=== PATIENT | female | born 2000 | race Caucasian/White ===

== ENCOUNTER 2023-03-07 13:32 | Observation (INO) | payer SELFPAY ==
[2023-03-07 13:50] VITALS: PULSE 100; O2SAT 99
[2023-03-07 13:55] VITALS: PULSE 88; O2SAT 98
[2023-03-07 14:01] VITALS: BP 119/78; PULSE 90
[2023-03-07 14:08] VITALS: BMI 34.3
--- NOTE | 2023-03-07 14:08 | OBADM ---
This patient, Toyin Cramer, admitted to the OB room OB Post 115 for observation. Patient/family oriented to hospital policies and general routines including ID bracelet, bed and alarms, visiting hours, pain management, procedures, bathroom and other care routines, personal items, smoking policy, room service/diet, and visiting hours. Patient/Family are encouraged to report perceived risks to care and to ask questions if they do not understand what they are told or what they should do.
[2023-03-07 14:17] LABS: Appearance Urine Clear (Clear); Bacteria Urine 1+ /hpf; Bilirubin Urine Negative (Negative); Blood Urine Negative (Negative); Color Urine Yellow (Yellow); Glucose Urine UA Negative (Negative); Ketones Urine Negative (Negative); Leukocyte Esterase Ur Trace LEU/UL (Negative); Nitrate Urine Negative (Negative); Non Pathogenic Casts 0-2; Protein Urine Negative (Negative); RBC Urine 0-2 /hpf (0-2); Specific Grav Ur 1.007 (1.001-1.035); Squamous Epithelial Cell Urine Few /hpf (Few); Urobilinogen Urine 0.2 mg/dL (<2.0); pH Urine 7.5 (5.0-9.0)
[2023-03-07 14:22] LABS: Add Urine Microscopic? YES
--- NOTE | 2023-03-07 14:45 | PC.NURSE ---
150 BPM per doppling HR. Dr. Murray notified of patient's arrival on unit with complaints of cramping, spotting, and decrease movement. Urine results reported to provider. Okay to discharge.
--- NOTE | 2023-03-10 13:42 | P.PNOB_ITS ---
OB - Triage/Final Diagnosis Visit Information Comments/Additional reasons for admission: I have assessed the risk for this patient, Toyin Cramer, and determined that she would benefit from observation care. Evaluation Laboratory results: Laboratory Tests 03/07/23 14:02 Urine Color Yellow Urine Appearance Clear Urine pH 7.5 Ur Specific [place] 1.007 Urine Protein Negative Urine Glucose (UA) Negative Urine Ketones Negative Ur Blood (Man) Negative Urine Nitrate Negative Urine Bilirubin Negative Urine Urobilinogen 0.2 Leukocyte Esterase Rfl Trace H Urine RBC 0-2 Urine WBC 6-10 H Ur Squamous Epith Cells Few Urine Bacteria 1+ H Urine Casts 0-2 Final Diagnosis (1) Spotting affecting : Code(s): O26.859 - Spotting complicating , unspecified trimester Status: Acute (2) Cramping affecting , antepartum: Code(s): O26.899 - Other specified related conditions, unspecified trimester; R10.9 - Unspecified abdominal pain Status: Acute (3) Decreased movement: Code(s): O36.8190 - Decreased movements, unspecified trimester, not applicable or unspecified Status: Acute
== END 2023-03-07 14:57 | disposition home or self-care (01) ==
PROVIDERS: Admitting Provider Obstetrics & Gynecology; Visit Provider Obstetrics & Gynecology
DX: O26.852 Spotting complicating pregnancy, second trimester (principal); O26.892 Other specified pregnancy related conditions, second trimester; R10.9 Unspecified abdominal pain; O36.8120 Decreased fetal movements, second trimester, not applicable or unspecified; Z3A.18 18 weeks gestation of pregnancy
CPT/HCPCS: 81001; 87086; 87088; G0378; G0379

== ENCOUNTER 2023-04-07 16:52 | Observation (INO) | payer MEDICAID, SELFPAY ==
[2023-04-07 17:18] VITALS: BP 124/70; PULSE 91
[2023-04-07 17:31] VITALS: BP 116/65; PULSE 90
[2023-04-07 17:35] VITALS: BMI 35.9
--- NOTE | 2023-04-07 17:35 | OBADM ---
This patient, Toyin Cramer, admitted to the OB room OB Post 115 for observation. Patient/family oriented to hospital policies and general routines including ID bracelet, bed and alarms, visiting hours, pain management, procedures, bathroom and other care routines, personal items, smoking policy, room service/diet, and visiting hours. Patient/Family are encouraged to report perceived risks to care and to ask questions if they do not understand what they are told or what they should do. Pt. presents with reports of having a gush of blood that she describes as a half dollar size in her panties.
[2023-04-07 17:46] VITALS: BP 103/60; PULSE 96
--- NOTE | 2023-04-07 17:51 | PC.NURSE ---
1744--Report to Dr. Mcneil re: pt's description of vaginal bleeding, this RN's assessment findings, v.s., fhr tracing and no ctxns noted. He viewed pt's u/s reports from office, orders to DC home and have pt. f/u in office on Monday or Monday.
--- NOTE | 2023-04-30 20:57 | PM.OBTRLD ---
OB - Triage/Final Diagnosis Visit Information Comments/Additional reasons for admission: I have assessed the risk for this patient, Toyin Cramer, and determined that she would benefit from observation care. Final Diagnosis (1) Spotting: Code(s): N92.0 - Excessive and frequent menstruation with regular cycle Status: Acute
== END 2023-04-07 18:10 | disposition home or self-care (01) ==
PROVIDERS: Admitting Provider Obstetrics & Gynecology; Visit Provider Obstetrics & Gynecology
DX: O26.852 Spotting complicating pregnancy, second trimester (principal); Z3A.22 22 weeks gestation of pregnancy
CPT/HCPCS: G0378; G0379

== ENCOUNTER 2023-04-16 18:41 | Observation (INO) | payer OTHER, MEDICAID, SELFPAY ==
[2023-04-16 19:22] VITALS: BP 110/71; PULSE 101
[2023-04-16 19:30] VITALS: BP 114/73; PULSE 96
[2023-04-16 19:46] VITALS: BP 101/71; PULSE 101
[2023-04-16 19:49] VITALS: BMI 35.9
--- NOTE | 2023-04-16 19:58 | OBADM ---
This patient, Toyin rCamer, admitted to the OB room OB Post 117 for observation. Patient/family oriented to hospital policies and general routines including ID bracelet, bed and alarms, visiting hours, pain management, procedures, bathroom and other care routines, personal items, smoking policy, room service/diet, and visiting hours. Patient/Family are encouraged to report perceived risks to care and to ask questions if they do not understand what they are told or what they should do.
[2023-04-16 20:01] VITALS: BP 81/66; PULSE 98
--- NOTE | 2023-04-18 16:32 | PM.OBTRLD ---
OB - Triage/Final Diagnosis Visit Information Date of evaluation: 04/16/23 Reason for evaluation: other (abd pain) Comments/Additional reasons for admission: I have assessed the risk for this patient, Toyin Cramer, and determined that she would benefit from observation care.
== END 2023-04-16 20:11 | disposition home or self-care (01) ==
PROVIDERS: Admitting Provider Obstetrics & Gynecology; Visit Provider Obstetrics & Gynecology
DX: O26.892 Other specified pregnancy related conditions, second trimester (principal); R10.9 Unspecified abdominal pain; Z3A.24 24 weeks gestation of pregnancy
CPT/HCPCS: G0378; G0379

== ENCOUNTER 2023-06-30 14:44 | Outpatient (CLI) | payer OTHER, SELFPAY ==
--- NOTE | ~2023-06-30 | US_ITS ---
EXAMINATION: US OB BPP wo non-stress DATE: 06/30/2023 16:35 COMPENSATION CONSULTANT INDICATION: Evaluate well-being. TECHNIQUE: Real-time transabdominal obstetric ultrasound. FINDINGS: 06/28/2023 There is a single living fetus in vertex presentation. The placenta is anterior without placenta pre via. cardiac activity and movement is noted with a heart rate of 163 beats per minute. Biophysical profile: breathin of 2 movement: 2 of 2 tone: 2 of 2 Amniotic flud pocket: 2 of 2 Total score: 8 of 8 IMPRESSION: 1. Single living intrauterine in vertex presentation. 2: Total biophysical profile score of 8/8. Reviewed, dictated and finalized at location A. ENSATION CONSULTANT
[2023-06-30 15:06] VITALS: BP 116/75; PULSE 105
--- NOTE | 2023-06-30 16:35 | PC.NURSE ---
BPP 02/07.
== END 2023-06-30 16:35 | disposition home or self-care (01) ==
LOC: ANHOBOP 14:46 → ANHOBPP 14:47
PROVIDERS: Visit Provider Student in an Organized Health Care Education/Training Program
DX: O42.90 Premature rupture of membranes, unspecified as to length of time between rupture and onset of labor, unspecified weeks of gestation (principal)
CPT/HCPCS: 59025; 76819; 84112; 99199

== ENCOUNTER 2023-08-01 16:47 | Inpatient (IN) | payer OTHER, SELFPAY ==
[2023-08-01] VITALS (12 sets, daily range): BP systolic 102–133; BP diastolic 51–97; PULSE 84–111; TEMP 36.9–37; BMI 44.1
[2023-08-01 17:20] LABS: Basophils Percent Auto 0.3 % (0.2-1.2); Eosinophils Absolute Auto 0.2 K/mm3 (0-0.3); Eosinophils Percent Auto 1.2 % (0-4.4); Hematocrit 33.9 % (37.0-47.0); Hemoglobin 10.5 g/dL (12.0-15.0); Immature Granulocyte Absolute 0.08 K/mm3 (0.00-0.031); Immature Granulocyte Percent A 0.6 % (0-0.5); Lymphocytes Absolute Auto 1.92 K/mm3 (0.9-3.2); Lymphocytes Percent Auto 14.7 % (18.3-44.2); Mean Corpuscular Hemoglobin 26.9 pg (26-34); Mean Corpuscular Volume 86.9 fl (80-100); Mean Platelet Volume 11.7 fl (7.4-10.4); Monocytes Absolute Auto 1.1 K/mm3 (0.1-0.6); Monocytes Percent Auto 8.3 % (2.6-8.5); Neutrophils Absolute Auto 9.8 K/mm3 (1.3-6.7); Neutrophils Percent Auto 74.9 % (45.5-73.1); Platelet Count Result 248 k/mm3 (150-375); Red Cell Distribution Width 14.6 % (11.5-14.5); White Blood Count 13.1 K/mm3 (4.5-10.0)
[2023-08-01] MEDS: DINOPROSTONE 10 MG VAG INSERT VAGINAL (18:32)
--- NOTE | 2023-08-01 23:50 | PC.NURSE ---
Updated Dr. Cuevas on pt, contractions, tracing, and cervical exam. Orders received to recheck cervix and discharge pt if no change.
[2023-08-02] VITALS (148 sets, daily range): BP systolic 91–194; BP diastolic 52–164; PULSE 73–126; TEMP 36.1–37.2; O2SAT 85–100
[2023-08-02] MEDS: ACETAMINOPHEN 500 MG TABLET 1000 MG PO (03:06)
--- NOTE | 2023-08-02 07:37 | WPDHPUPDATE1 ---
History and Physical Update Update Date/Time: 08/02/23 07:37 22-year-old who presents at 39 weeks 2 days for elective induction of labor. History and Physical has been reviewed, including an updated exam of the patient. There are NO changes in the patient's condition. Risks, benefits, and alternatives have been discussed and questions answered. Patient agrees to proceed with procedure. A/P: Admit to Labor and delivery Routine admission orders labs reviewed Rh positive GBS negative Plan for Cervidil induction of labor Continuous external monitoring
[2023-08-02] MEDS: OXYTOCIN 30 UNITS/NS 500 ML 30 UNITS/500 ML BAG IV CONT (09:28)
[2023-08-02] MEDS: LACTATED RINGERS 1,000 ML 125 ML IV CONT ×2 (09:29→16:58)
[2023-08-02] MEDS: ONDANSETRON INJ 4 MG/2 ML VIAL IV PUSH (11:55)
[2023-08-02 15:59] LABS: Rapid Plasma Reagin Non-Reactive (NonReactive)
[2023-08-02] MEDS: fentaNYL CITRATE INJ (*CRX) 100 MCG/2 ML VIAL 50 MCG IV PUSH (18:22)
--- NOTE | 2023-08-02 20:51 | P.PNAN_ITS ---
Anes - Initial Pre Proc Eval Procedure: Labor epidural Date/Time: 08/02/23 20:31 Surgeon: Harley Gustafson MD Pre Op Diagnosis: Labor pain Pre Op Diagnosis: IOL Patient Data Age: 22 Gender: F Height: 1.6 m Weight: 113 kg Last Vital Signs Temp 37.2 C 08/02/23 17:00 Pulse 93 08/02/23 20:49 BP 126/80 08/02/23 20:49 Pulse Ox 98 08/02/23 20:48 O2 Del Method Room Air 08/01/23 17:18 Allergies Allergy/AdvReac Type Severity Reaction Status Date / Time amoxicillin Allergy Intermediate Rash Verified 08/01/23 10:27 Penicillins Allergy Anaphylaxis Verified 08/01/23 10:27 Home Medications Medication Instructions Recorded Confirmed Type vit no.133-ferrous 1 tablet PO DAILY 04/07/23 08/01/23 History fumarate 28 mg-folic acid 800 mcg tablet () ferrous sulfate 325 mg (65 mg 325 mg PO DAILY 05/22/23 08/01/23 History iron) tablet,delayed release ondansetron HCl 4 mg tablet 4 mg PO Q6H PRN nausea and 06/06/23 08/01/23 Rx vomiting #30 tabs Laboratory Tests 08/01/23 16:59 RPR Non-reactive (NonReactive) Patient hx anesthesia problems: none Family hx anesthesia problems: none Results Review: All pre-operative results and documents have been reviewed as part of the pre- operative evaluation. [facility] Past Medical History Medical History Surgical History Surgical History Hx of tonsillectomy Family History Family History Mother Placenta accreta Grandparent Placenta accreta Sibling Autism Social History Social History Smoking status: Current every day smoker Tobacco type: e-cigarettes/vaping Second hand tobacco smoke exposure: Yes Alcohol intake: former Substance use: never Do You Feel Safe in your Home?: Yes Lack of Transportation: No Lack of Food: Never True Current Housing: I Have Housing Concerned About Future Housing: No Difficulty Paying Gas/Electric Bills: No Difficulty Paying for Meds: No Currently Unemployed: YES Education: High School Diploma/GED Difficulty w/ Childcare or Family Care: No Living arrangements: with family Occupation/Education: occupation Gender identity (if verbalized by the patient): Female Spiritual care concerns: No Anes - Eval Final PreProcedure Day of Procedure 08/02/23 20:51 Patient weight: obese Heart: regular rate and rhythm Lungs: clear to auscultation Airway: Mallampati scale class III Neurological: alert and oriented ASA classification: III Results Review: All pre-operative results and documents have been reviewed as part of the pre- operative evaluation. Informed Consent: The patient's anesthetic plan and its attendant risks and benefits were discussed with the patient/family/POA. Questions were solicited and answers provided to the satisfaction of the patient/family/POA.
--- NOTE | 2023-08-02 20:52 | WPDANESEPN ---
Anes - Epidural Procedure Note Date/Time: 08/02/23 20:52 Consent: I have discussed with the patient/family/POA, the placement of an epidural catheter and the use of epidural narcotic/local anesthetic for labor analgesia and/or postoperative pain management, including associated potential risks, benefits, complications and side effects. I have discussed alternative methods of labor analgesia and/or postoperative pain management. The patient/family/POA, understand(s) and wish(es) to proceed with epidural narcotic/local anesthetic for labor analgesia and/or postoperative pain management. Time-Out: A pre-procedural Time-Out was completed immediately before starting the procedure and confirmed: Patient Identification, Site, Procedure, Patient Position and the Availability of Requisite Equipment. Clinical Indications: Labor pain Epidural Insertion Note Patient position: sitting Skin prep: chlorhexidine and sterile drape Needle: 18g Tuohy-Schliff Catheter: 20g Unstyleted Technique: Loss of resistance. Level of insertion: L4/5 Catheter skin regan (cm): 14 Length in epidural space (cm): 9 Skin anesthesia: lidocaine 1% Test dose: 1.5% Lidocaine with 1:[id number] Epi, negative for subarachnoid Inj and negative for intravascular Inj Time of test dose: 20:42 Observations: tolerated well Complications: none
[2023-08-03] VITALS (236 sets, daily range): BP systolic 88–151; BP diastolic 50–138; PULSE 75–135; RESP 14–23; TEMP 36.2–37.6; O2SAT 94–100
[2023-08-03] MEDS: ONDANSETRON INJ 4 MG/2 ML VIAL IV PUSH ×4 (00:24→17:47)
--- NOTE | 2023-08-03 11:06 | PM.IMHP ---
H&P: HPI History of Present Illness Date/Time: 08/03/23 11:06 Chief Complaint: intrauterine at term Narrative: 22 yo G1 at 39w4d days who elective IOL. Review of Systems Cardiovascular: Cardiovascular: Denies chest pain, Denies leg edema, Denies palpitations, Denies dyspnea and Denies dyspnea on exertion Respiratory: Respiratory: Denies cough, Denies dyspnea and Denies dyspnea on exertion Gastrointestinal: Gastrointestinal: Denies abdominal pain, Denies constipation, Denies diarrhea, Denies nausea and Denies vomiting Genitourinary: Genitourinary: Denies hematuria, Denies urinary frequency, Denies dysuria, Denies pelvic pain, Denies urinary incontinence and Denies vaginal discharge Neurologic: Reports system reviewed and no additional complaints, except as documented Psychiatric: Psychiatric: Reports no additional psychiatric complaints Endocrine: Endocrine: Denies palpitations PMFSH Past Medical History Medical History Surgical History Surgical History Hx of tonsillectomy Family History Family History Mother Placenta accreta Grandparent Placenta accreta Sibling Autism Social History Social History Smoking status: Current every day smoker Tobacco type: e-cigarettes/vaping Second hand tobacco smoke exposure: Yes Alcohol intake: former Substance use: never Do You Feel Safe in your Home?: Yes Lack of Transportation: No Lack of Food: Never True Current Housing: I Have Housing Concerned About Future Housing: No Difficulty Paying Gas/Electric Bills: No Difficulty Paying for Meds: No Currently Unemployed: YES Education: High School Diploma/GED Difficulty w/ Childcare or Family Care: No Living arrangements: with family Occupation/Education: occupation Gender identity (if verbalized by the patient): Female Spiritual care concerns: No Meds Home Medications and Allergies Home Medications Medication Instructions Recorded Confirmed Type vit no.133-ferrous 1 tablet PO DAILY 04/07/23 08/01/23 History fumarate 28 mg-folic acid 800 mcg tablet () ferrous sulfate 325 mg (65 mg 325 mg PO DAILY 05/22/23 08/01/23 History iron) tablet,delayed release ondansetron HCl 4 mg tablet 4 mg PO Q6H PRN nausea and 06/06/23 08/01/23 Rx vomiting #30 tabs Allergies Allergy/AdvReac Type Severity Reaction Status Date / Time amoxicillin Allergy Intermediate Rash Verified 08/01/23 10:27 Penicillins Allergy Anaphylaxis Verified 08/01/23 10:27 Vital Signs Vital Signs - 24 hr 08/02/23 11:16 08/02/23 11:46 08/02/23 12:01 Temperature Pulse Rate 88 81 83 Blood Pressure 124/83 128/84 126/65 Pulse Oximetry 08/02/23 12:16 08/02/23 12:31 08/02/23 12:46 Temperature Pulse Rate 80 73 84 Blood Pressure 126/83 112/75 116/78 Pulse Oximetry 08/02/23 13:15 08/02/23 13:16 08/02/23 13:31 Temperature 97.2 F L Pulse Rate 86 93 Blood Pressure 124/74 115/71 Pulse Oximetry 08/02/23 13:46 08/02/23 14:01 08/02/23 14:16 Temperature Pulse Rate 90 82 103 H Blood Pressure 115/69 123/75 122/70 Pulse Oximetry 08/02/23 14:31 08/02/23 14:46 08/02/23 15:01 Temperature Pulse Rate 86 82 87 Blood Pressure 125/65 112/75 116/81 Pulse Oximetry 08/02/23 15:16 08/02/23 15:31 08/02/23 15:46 Temperature Pulse Rate 87 87 86 Blood Pressure 114/70 91/65 L 110/69 Pulse Oximetry 08/02/23 16:03 08/02/23 15:30 08/02/23 13:00 Temperature 97.2 F L 97 F L Pulse Rate 84 Blood Pressure 126/83 Pulse Oximetry 08/02/23 16:20 08/02/23 16:31 08/02/23 16:46 Temperature Pulse Rate 119 H 108 H 98 Blood Pressure 128/53 L 107/73 115/72 Pulse Oximetry
[2023-08-03] MEDS: LACTATED RINGERS 1,000 ML 125 ML IV CONT ×2 (11:44→13:45)
[2023-08-03] MEDS: ACETAMINOPHEN 500 MG TABLET 1000 MG PO (12:28)
[2023-08-03] MEDS: FAMOTIDINE 20 MG/2 ML VIAL IV PUSH (13:07)
--- NOTE | 2023-08-03 13:07 | P.PNAN_ITS ---
Anes - Eval Final PreProcedure Day of Procedure 08/03/23 13:07 Patient weight: morbidly obese Heart: regular rate and rhythm Lungs: decreased breath sounds Airway: Mallampati scale class II Neurological: alert and oriented Last oral intake: >/= 8 hours ASA classification: III Emergent: no Anesthetic plan: proceed Anesthesia type and monitoring: regional epidural and standard monitoring Results Review: All pre-operative results and documents have been reviewed as part of the pre- operative evaluation. Informed Consent: The patient's anesthetic plan and its attendant risks and benefits were disc ussed with the patient/family/POA. Questions were solicited and answers provided to the satisfaction of the patient/family/POA.
[2023-08-03] MEDS: CLINDAMYCIN 900 MG/D5W 50 ML 900 MG/50 ML PIGGYBACK 50 MG IVPB (13:14)
[2023-08-03] MEDS: AZITHROMYCIN 500 MG/NS 250 ML 500 MG/250 ML BAG 250 MG IVPB (13:14)
--- NOTE | 2023-08-03 14:49 | W.PM.OBCSD ---
OB - Delivery Note Procedure Delivery date: 08/03/23 Pre-op diagnosis: Arrest of Dilation Post-op Diagnosis: Same Induction method: Per Pitocin Protocol Delivery augmentation: Rupture of Membranes and Pitocin Delivery monitor: External FHT and External Uterine Prior to decision for section, ACOG/SMFM labor guidelines were considered and discussed with the patient and staff. Decision made to proceed with the section.: Yes Procedure Performed: Primary Primary branch: low cervical, transverse Surgeon: Harley Gustafson MD Anesthesia type: Spinal Description of Procedure/Findings: The patient was taken to the operating room where epidural anesthesia was found to be adequate. She was then prepped and draped in the usual sterile fashion in the dorsal supine position with a leftward tilt. A Pfannenstiel skin incision was then made with the scalpel and carried through to the underlying layer of fascia. The fascia was then incised in the midline and the incision extended laterally with the Leal scissors. The superior aspect of the fascia was then grasped with the Anna clamps, elevated, and the underlying rectus muscles dissected off bluntly and sharply. Attention was then turned to the inferior aspect of this incision which, in a similar fashion, was grasped, tented up with the Anna clamps, and the rectus muscles dissected off both bluntly and sharply. The rectus muscles were then in the midline, and the peritoneum identified, tented up, and entered sharply with the Metzenbaum scissors. The peritoneal incision was then extended superiorly and inferiorly with good visualization of the bladder. An nella ring retractor was placed for better visualization. The uterus was inspected for rotation. A low transverse uterine incision was made. The uterine incision was then extended bluntly . The ?s head delivered atraumatically. The remainder of the was delivered atraumatically. The cord was clamped and cut. The infant was handed off to the waiting pediatricians (staff). Cord gasses were sent. The placenta was then removed manually, the uterus exteriorized, and cleared of all clots and debris. The uterine incision was repaired with 0 vicryl in a running fashion. A second layer of suture with 0 vicryl was used as an imbricating layer. The uterus was returned to the abdomen. The uterus was then reinspected to ensure hemostasis as were all subfascial tissues. Hemaderm was used to ensure hemostasis. The peritoneum was re-approximated with 3-0 vicryl in a running fashion. The fascia was reapproximated with 0 vicryl in a running fashion. The subcutaneous tissue was copiously irrigated with saline. The subcutaneous tissue was reapproximated using 3-0 Vicryl in a running fashion. The skin was closed with 4-0 vicryl. The patient tolerated the procedure well. Sponge, lap and needle counts were correct times three. The patient was taken to the recovery room in stable condition. Specimen: No Estimated Blood Loss: 530 Drains: No Packing: No Pathology: None sent Complications: No immediate complications Condition: Stable Disposition: PACU [place] Baby Date of : 08/03/23 Weeks of gestation at delivery: 39 Infant gender: Male Weight (pounds): 6 Weight (ounces): 8 presentation: vertex Placenta delivery description: Manual Removal Cord Vessel Description: 3 Vessels, Loose and Around Body score one minute: 8 score five minutes: 9 AMG Delivery Billing Delivery Delivery: Delivery Charge
--- NOTE | 2023-08-03 15:13 | PC.NURSE ---
In OR, Rowan Clarke COUTIERIER determined epidural was no longer wprking. Epidural catheter removed by Odalis Fink RN and tip was intact. Rowan Clarke COUTIERIER proceeded to place spinal per protocol.
--- NOTE | 2023-08-03 15:14 | PC.NURSE ---
heart tones obtained with FSE in OR prior to prepping patient. FHT 140 at 1317. FSE removed intact by Ian Forbes RN.
[2023-08-03] MEDS: MORPHINE SULFATE INJ (*CRX) 10 MG/ML AMP 3 MG IV PUSH (15:24)
[2023-08-03] MEDS: OXYTOCIN 30 UNITS/NS 500 ML 30 UNITS/500 ML BAG 125 UNITS IV CONT (15:25)
--- NOTE | 2023-08-03 16:50 | PC.NURSE ---
Patient transferred to post room #282 via stretcher.. Support person present. Oriented to unit, room, information board, rooming in, admission packet and security measures. Patient verbalizes understanding.
[2023-08-03] MEDS: KETOROLAC 30 MG/ML VIAL (*BKC) IV PUSH (17:46)
[2023-08-03] MEDS: SIMETHICONE 80 MG TAB.CHEW PO (17:51)
[2023-08-04] MEDS: HYDROcodone/acetaminophen (*CRX) 10-325 MG TABLET 1 TAB PO ×4 (04:30→23:30)
[2023-08-04] MEDS: IBUPROFEN 600 MG TABLET PO ×3 (04:30→23:30)
[2023-08-04 04:31] LABS: Basophils Absolute Auto 0.1 K/mm3 (0.0-0.1); Basophils Percent Auto 0.3 % (0.2-1.2); Eosinophils Absolute Auto 0.2 K/mm3 (0-0.3); Eosinophils Percent Auto 1.3 % (0-4.4); Hemoglobin 8.5 g/dL (12.0-15.0); Immature Granulocyte Percent A 0.7 % (0-0.5); Lymphocytes Absolute Auto 1.62 K/mm3 (0.9-3.2); Mean Corpuscular HGB Conc 31.5 g/dl (32-36); Mean Corpuscular Hemoglobin 27.1 pg (26-34); Mean Platelet Volume 11.2 fl (7.4-10.4); Monocytes Absolute Auto 1.1 K/mm3 (0.1-0.6); Monocytes Percent Auto 7.3 % (2.6-8.5); Neutrophils Absolute Auto 11.7 K/mm3 (1.3-6.7); Neutrophils Percent Auto 79.4 % (45.5-73.1); Platelet Count Result 180 k/mm3 (150-375); Red Blood Count 3.14 M/mm3 (4.2-5.4); Red Cell Distribution Width 15.3 % (11.5-14.5); White Blood Count 14.8 K/mm3 (4.5-10.0)
[2023-08-04] MEDS: POLYSACCHARIDE IRON COMPLEX 150 MG CAPSULE PO ×2 (07:26→16:27)
[2023-08-04] MEDS: MULTIVIT/MIN/PREN/FOL AC/IRON TABLET 1 TAB PO (07:27)
[2023-08-04] MEDS: SIMETHICONE 80 MG TAB.CHEW PO ×4 (07:27→23:30)
[2023-08-04] MEDS: LANOLIN (LANSINOH) 7.5 GM CREAM 1 APPLIC TOPICAL (07:28)
[2023-08-04] MEDS: LIDOCAINE 5% PATCH 1 PATCH TRANSDERM (07:28)
[2023-08-04] MEDS: DOCUSATE SODIUM 100 MG CAPSULE PO ×2 (07:30→16:27)
[2023-08-04 08:14] VITALS: BP 127/78; PULSE 105; RESP 18; TEMP 37; O2SAT 97
--- NOTE | 2023-08-04 10:23 | WPDANLDPN2 ---
Anes-Prog Note L&D Date/Time: 08/04/23 10:23 Comfortable throughout: section Neuraxial method: spinal Epidural/Spinal procedure site: bruising Neuro status: Neuro function grossly intact. Cardiovascular status: normal Respiratory status: normal Airway patency: baseline Mental status: baseline Post-Op hydration status: normal Vital Signs: Last Vital Signs Temp 37.0 C 08/04/23 08:14 Pulse 105 H 08/04/23 08:14 Resp 18 08/04/23 08:14 BP 127/78 08/04/23 08:14 Pulse Ox 97 08/04/23 08:14 O2 Del Method Room Air 08/03/23 16:30 Pain score (VAS): 3/10 I/O: Intake & Output 08/03/23 08/04/23 08/04/23 23:59 07:59 15:59 Output Total 50 Balance -50 Post-procedural complaints: none and pruritis moderate, treatment effective Patient feedback: Patient satisfied with anesthetic care.
--- NOTE | 2023-08-04 10:24 | WPDANLDNPN2 ---
Anes-Prog Note L&D-Neuraxial Date/Time: 08/04/23 10:24 Neuraxial medications: intrathecal PF morphine Opiod-related complaints: pruritis moderate, treatment effective Patient feedback: Patient satisfied with post-operative pain management.
[2023-08-04] MEDS: LORATADINE 10 MG TABLET PO (11:31)
[2023-08-04 11:57] VITALS: BP 128/87; PULSE 100; RESP 16; TEMP 37.3; O2SAT 100
--- NOTE | 2023-08-04 12:00 | P.PNOB_ITS ---
OB - PN: Subj Subjective Date/time seen: 08/04/23 12:00 S: tolerating regular diet, ambulating without difficulty. Denies significant bleeding pain. Overall feels well O: VSS afebrile Abdomen positive bowel sounds soft incision covered Labs noted Assessment: 1. Postoperative day 1 status post primary low-transverse section... good progress to this point, desires to be discharged tomorrow Plan: 1. Routine postoperative/ care today 2. Discharge home tomorrow if continues to improve OB - PN: Obj Data Labs 08/04/23 04:20 Labs: Laboratory Results - last 24 hr 08/04/23 04:20 WBC 14.8 H RBC 3.14 L Hgb 8.5 L Hct 27.0 L MCV 86.0 MCH 27.1 MCHC 31.5 L RDW 15.3 H Plt Count 180 MPV 11.2 H Immature Gran % (Auto) 0.7 H Neut % (Auto) 79.4 H Lymph % (Auto) 11.0 L [place] % (Auto) 7.3 Eos % (Auto) 1.3 Baso % (Auto) 0.3 Lymph # (Auto) 1.62 [place] # (Auto) 1.1 H Eos # (Auto) 0.2 Baso # (Auto) 0.1 Abs Immat Gran (auto) 0.10 H Absolute Neuts (auto) 11.7 H Absolute Nucleated RBC 0.0 Nucleated RBC % 0.0 OB - PN A/P Time Spent With Patient Time: Total time spent is greater than 50% in coordination of care (as documented) at patient's floor/unit and/or counseling patient:
--- NOTE | 2023-08-04 14:54 | PC.NURSE ---
[id number] Introductions were made and RN consulted with patient to assess needs related to . Encouraged understanding the benefits of skin to skin, responding to feeding cues, frequencies of feeding 8-12 times in 24 hours (approximately 2-3 hours), duration of feedings, milk production, intake/output feeding sheet and signs of adequate intake encouraging swallowing at the breast. Mother is not interested in working with at this time related to sleeping. Mother asked RN to check back after OP appt. [id number] Purposefully rounded to assess any /pumping questions or challenges. Mother shared that grandma just fed the baby a bottle. Mother desires to breastfeed for the first two weeks so, we discussed protecting the milk supply with pumping. Instructions given on cleaning, care, usage, that there should be no pain, pumping schedule for milk production, collection, and storage of human milk. Patient encouraged to consistently stimulate for adequate milk production every 3 hours (8 times in 24 hours) 1-2 times at night. Demonstrated paced bottle feeding with parents and grandmother. Parents voiced understanding of the education. Resources used to facilitate learning were used from the visual handouts, tool, mom and baby guide. Mother voiced understanding of the education shared, when to call for assistance if the does not latch, requests assistance with , or if there is discomfort with . Mother shared she has a community nurse retired from [employer] that she has for a resource.
[2023-08-04 19:00] VITALS: BP 151/100; PULSE 115; RESP 18; TEMP 37.3; O2SAT 98
--- NOTE | 2023-08-05 07:47 | PM.OBDSVD ---
DS: Admitting Diagnosis Discharge Date 08/05/2023 Admitting Diagnosis DS: Discharge Diagnosis Discharge Diagnosis (1) , delivered: Code(s): O80 - Encounter for full-term uncomplicated delivery Status: Acute (2) Postoperative pain: Code(s): G89.18 - Other acute postprocedural pain Status: Acute OB - DS: Summary OB Procedures : None OB Procedures Intrapartum: OB Procedures: : None Peripartum Data Procedures: Procedures Operation Date: 08/03/23 13:00 Actual Procedure Side Surgeon p Section Not Applicable Harley Gustafson MD Time Spent with Patient Time attestation: Total time spent providing and/or coordinating discharge services: Discharge Plan Discharge Discharging Clinician: Renny Bean Patient Disposition: Home, Self-Care Activity: no driving and pelvic rest Diet: as tolerated Wound Care Instructions: incision open to air Patient Instructions: Antibiotic Form Stand Alone Forms: General Discharge Information Follow-up/Referrals: Harley Gustafson MD [Physician] - 3 Weeks Discharge Medications: New hydrocodone-acetaminophen 5-325 mg Tablet 1 tablet PO Q4-6H PRN (Reason: Moderate Pain (4-6)) Qty: 18 0RF ibuprofen 600 mg Tablet 600 mg PO Q6H PRN (Reason: Cramping) Qty: 30 0RF Continued ferrous sulfate 325 mg (65 mg iron) tablet,delayed release (DR/EC) 325 mg PO DAILY ondansetron HCl 4 mg tablet 4 mg PO Q6H PRN (Reason: nausea and vomiting) Qty: 30 1RF 28-800 mg-mcg Tablet 1 tablet PO DAILY Date of admission: 08/01/23 16:47 Primary Care Provider: PHYSICIAN,TRAIN CONTROL ELECTRONIC TECHNICIAN Admitting Provider: Harley Gustafson Attending physician on admission: Harley Gustafson Condition: Stable
[2023-08-05 08:15] VITALS: BP 136/84; PULSE 76; RESP 18; TEMP 36.5; O2SAT 100
[2023-08-05] MEDS: POLYSACCHARIDE IRON COMPLEX 150 MG CAPSULE PO (08:29)
[2023-08-05] MEDS: MULTIVIT/MIN/PREN/FOL AC/IRON TABLET 1 TAB PO (08:29)
[2023-08-05] MEDS: DOCUSATE SODIUM 100 MG CAPSULE PO (08:29)
[2023-08-05] MEDS: HYDROcodone/acetaminophen (*CRX) 10-325 MG TABLET 1 TAB PO (08:29)
[2023-08-05] MEDS: SIMETHICONE 80 MG TAB.CHEW PO (08:30)
[2023-08-07 14:52] VITALS: BP 127/81; PULSE 94; RESP 18; TEMP 37; O2SAT 100
== END 2023-08-05 12:22 | disposition home or self-care (01) | DRG 540 ==
LOC: ANHLDR 08-02 11:53 → ANHOB2 08-05 07:48 → ANHLDR 08-07 12:15 → ANHOB2 08-07 12:15
PROVIDERS: Admitting Provider Student in an Organized Health Care Education/Training Program; Visit Provider Obstetrics & Gynecology
PROC: 10D00Z1 Extraction of Products of Conception, Low, Open Approach (ICD-10-PCS; CPT 59514; principal; 2023-08-03 13:00)
DX: O69.81X0 Labor and delivery complicated by cord around neck, without compression, not applicable or unspecified (principal); Z37.0 Single live birth; Z3A.39 39 weeks gestation of pregnancy; O62.2 Other uterine inertia
CPT/HCPCS: 36415; 85025; 86592; 86850; 86900; 86901; A9270; J0456; J1580; J1885; J2001; J2270; J2274; J2371; J2405; J2590; J2795; J3010; J7120